=== PATIENT | female | born 1945 | race Hispanic/Latino ===

== ENCOUNTER 2018-05-15 18:40 | Emergency (ER) | payer MEDICARE ==
[~2018-05-15 18:40] MED LIST: ACET650S25 PO; ASPI-449 PO; ASPI-555 PO; ATOR40TA69 PO; CARV12.511 PO; DOCU100C33 PO; FOLI1CAP16 PO; FURO40TA7 PO; HYDR-4060 PO; HYDR12.530 PO; ISOS30TA6 PO; LOSA25TA16 PO; LOSA50TA25 PO; NITR0.4T SL; OMEP20TA25 PO; REPA1 PO; SENN-183 PO; SIMV40TA59 PO; SITA100T12 PO; SITA50TA PO
[2018-05-15 19:53] LABS: BASOPHILS % (AUTO) 1.4 % (0.0-5.0); EOSINOPHILS % (AUTO) 1.7 % (0.0-8.0); HEMATOCRIT 35.4 % (36-48); LYMPHOCYTES % (AUTO) 23.5 % (21.0-51.0); MEAN CORPUSCULAR HEMOGLOBIN 29.4 pg (27.0-33.0); MEAN CORPUSCULAR HGB CONC 33.1 g/dL (32.0-36.0); MEAN CORPUSCULAR VOLUME 88.7 fL (79-99); MONOCYTES % (AUTO) 6.5 % (3.0-13.0); NEUTROPHILS % (AUTO) 66.9 % (40.0-77.0); PLATELET COUNT (AUTO) 203 K/uL (130-400); RED BLOOD CELL COUNT(AUTO) 3.99 MIL/uL (4.00-5.50); RED CELL DISTRIBUTION WIDTH 14.1 % (11.0-15.5); WHITE BLOOD COUNT (AUTO) 7.7 K/uL (4.8-10.8)
[2018-05-15 20:03] LABS: APPEARANCE,URINE CLEAR (CLEAR); BILIRUBIN,URINE NEGATIVE (NEGATIVE); COLOR,URINE YELLOW (YELLOW); GLUCOSE, URINE (UA) NEGATIVE (NEGATIVE); KETONES,URINE NEGATIVE (NEGATIVE); LEUKOCYTE ESTERASE ,URINE SMALL (NEGATIVE); NITRATE,URINE NEGATIVE (NEGATIVE); OCCULT BLOOD,URINE NEGATIVE (NEGATIVE); PH,URINE 5.5 (5.0-8.0); PROTEIN,URINE NEGATIVE (NEGATIVE); UROBILINOGEN,URINE 0.2 mg/dL (0.2-1.0)
[2018-05-15 20:04] LABS: CREATININE 1.2 mg/dL (0.5-1.5)
[2018-05-15 20:09] LABS: ALBUMIN 3.8 g/dL (3.5-5.0); BILIRUBIN,TOTAL 0.4 mg/dL (0.2-1.0); TOTAL PROTEIN, SERUM 7.8 g/dL (6.0-8.3)
[2018-05-15 20:15] LABS: BACTERIA,URINE Rare /HPF (None Seen); RBC,URINE 0-1 /HPF (0-1); SQUAMOUS EPITHELIAL CELL,UR Few /HPF (0-2)
[2018-05-15] MEDS ORDERED: NITROGLYCERIN 1GM/1 INCH PACKET TD ONE (20:49)
[2018-05-15] MEDS ORDERED: ASPIRIN 81MG TAB.CHEW ONE (22:12)
[2018-05-16] MEDS ORDERED: ASPIRIN 81MG TAB.CHEW ONE (07:03)
== END 2018-05-16 09:23 | disposition short-term general hospital (02) ==
LOC: EDH 18:40
DX: I63.9 Cerebral infarction, unspecified (principal); I21.4 Non-ST elevation (NSTEMI) myocardial infarction; G93.89 Other specified disorders of brain; I10 Essential (primary) hypertension; E11.9 Type 2 diabetes mellitus without complications; E78.5 Hyperlipidemia, unspecified; I25.810 Atherosclerosis of coronary artery bypass graft(s) without angina pectoris
CPT/HCPCS: 36415; 70450; 70551; 80053; 81001; 83690; 84484; 85025; 93005